=== PATIENT | male | born 1965 | race Caucasian/White ===

== ENCOUNTER 2018-05-01 12:15 | Observation (INO) | payer OTHER ==
--- NOTE | 2018-04-30 18:01 | GHP ---
DATE OF ADMISSION: 05/01/2018 HISTORY: The patient is a 52-year-old male who presents with years of right knee pain, predominantly laterally. He has had a right knee arthroscopy and partial lateral meniscectomy back around 2012, w ith myself in 2016 for further chondroplasty and meniscal work. He has a remote history of ACL injur y that was treated non operatively and he denies instability. The meniscectomy work has not provided relief and he has had numerous additional treatments, my arthroscopy included PRP injection around t he meniscus, he has had steroid injections as well as hyaluronic acid injections. He has maintained his fitness and his range of motion. He has modified his activities. He is at a point now where any kind of activity bothers his knee, even just activities of daily living. His most recent studies in clude x-rays and MRI, he has tricompartment arthritis, most predominantly lateral and patellofemoral compartment, the lateral compartments had partial meniscectomy work. He has most significant chondro malacia in the lateral compartment, but also significant chondromalacia of the patellofemoral compart ment. He has had a thorough discussion with me about partial versus total knee replacement, given th e multi-compartment involvement and his knowledge and now of the different options, he would like to proceed with a right total knee arthroplasty. PAST MEDICAL HISTORY: No current medical problems. PAST SURGICAL HISTORY: Includes herniorrhaphy. He has had right hand and wrist procedures. He has had multiple procedures on his right knee. He has had a right foot sesamoidectomy. MEDICATIONS: He is taking no prescription medications. He is using supplements. ALLERGIES: He has no known drug allergies. SOCIAL HISTORY: He is a nonsmoker. REVIEW OF SYSTEMS: Negative for cardiopulmonary disease. PHYSICAL EXAM: The right knee has an effusion. He has lateral joint line tenderness, a positive lat eral Judi's test. His ACL does have some increased translation and a soft endpoint. His skin is intact. Neurovascular exam is intact. He has maintained his range of motion. IMPRESSION: Right knee osteoarthritis, predominantly lateral and patellofemoral compartments. PLAN: Right total knee arthroplasty. Benefits and risks of surgery have been reviewed including the risk of infection, damage to blood vessel or nerves, failure or loosening of components, blood clot in the leg or lungs bleeding and need for transfusion. I have reviewed the rigorous nature of the re habilitation. He has signed consent form and he wishes to proceed. /[id number]/MODL
--- NOTE | 2018-05-01 11:36 | PDANEPAE ---
ANE Past Medical History - Cardiovascular History Hx Hypertension: No Hx Arrhythmias: No Hx Chest Pain: No Hx Coronary Artery / Peripheral Vascular Disease: No Hx CHF / Valvular Disease: No Hx Palpitations: No - Pulmonary History Hx COPD: No Hx Asthma/Reactive Airway Disease: No Hx Recent Upper Respiratory Infection: No Hx Oxygen in Use at Home: No Hx Sleep Apnea: No Sleep Apnea Screening Result - Last Documented: Positive - Neurologic History Hx Cerebrovascular Accident: No Hx Seizures: No Hx Dementia: No - Endocrine History Hx Diabetes: No - Renal History Hx Renal Disorders: No - Liver History Hx Hepatic Disorders: No - Neurological & Psychiatric Hx Hx Neurological and Psychiatric Disorders: No - Cancer History Hx Cancer: No - Congenital Disorder History Hx Congenital Disorders: No - GI History Hx Gastrointestinal Disorders: No - Other Health History Other Health History: none - Chronic Pain History Chronic Pain: Yes (right wrist) - Surgical History Prior Surgeries: march 14 wrist surgery. R knee scopes 2yrs ago x2 ANE Review of Systems Review of Systems: - Exercise capacity Exercise capacity: >=4 METS METS (RN): 6 METS ANE Patient History - Allergies Allergies/Adverse Reactions: No Known Allergies Allergy (Unverified 04/21/18 15:33) - Home Medications Home Medications: NK [No Known Home Meds] 04/21/18 [Last Taken Unknown] - NPO status NPO Status: no food or drink >8 hours - Anes Hx Anes Hx: no prior problems - Smoking Hx Smoking Status: Never smoked - Family Anes Hx Family Anes Hx: none Family Hx Anesthesia Complications: none ANE Labs/Vital Signs - Vital Signs Height: 175.26 cm Weight: 78.471 kg ANE Physical Exam - Airway Neck exam: FROM Mallampati Score: Class 2 Mouth exam: normal dental/mouth exam - Pulmonary Pulmonary: clear to auscultation - Cardiovascular Cardiovascular: regular rate and rhythym - ASA Status ASA Status: I ANE Anesthesia Plan Anesthesia Plan: spinal Regional Anesthesia: single shot NB
[~2018-05-01 12:15] MED LIST: POVIDONE-IODINE 20 ML in SODIUM CL IRRIG SOLUTION 500 ML IRR ONE; ROPIVACAINE 0.2% 80 MG, EPINEPHrine 0.2 MG, KETOROLAC TROMETHAMINE 30 MG in SYRINGE 0 ML IU ONE; TRANEXAMIC ACID 1,000 MG in NS 100 ML IV ONE; ceFAZolin 1 GM/5 ML SYR ONE
[2018-05-01] MEDS ORDERED: ONDANSETRON 4 MG/2 ML VIAL IVP ONE (12:30)
[2018-05-01] MEDS ORDERED: ACETAMINOPHEN 325 MG TAB PO ONE (12:30)
[2018-05-01] MEDS ORDERED: ceFAZolin 2 GM/DEXTROSE 100 ML IV ONE (12:30)
[2018-05-01] MEDS ORDERED: GABAPENTIN 300 MG CAP PO ONE (12:30)
[2018-05-01] MEDS ORDERED: DEXAMETHASONE 4 MG/ML VIAL IVP ONE (12:30)
[2018-05-01] MEDS ORDERED: FAMOTIDINE 20 MG TAB PO ONE (12:30)
[2018-05-01] MEDS ORDERED: LR 1,000 ML IV ONE (12:31)
[2018-05-01] MEDS ORDERED: LIDOCAINE 1% 2 ML INJ ID PRN (12:31)
--- NOTE | 2018-05-01 12:51 | PDHPUP ---
History & Physical Update H&P update statement: This history and physical update is based on an assessment of the patient which was completed after admission or registration (within 24 hours), but prior to the surgery/procedure. no change H&P update: no change in patient's condition since H&P completed (no change)
[2018-05-01] MEDS ORDERED: MIDAZOLAM 2 MG/2 ML VIAL IVP ONE (12:53)
[2018-05-01] MEDS ORDERED: BUPIVACAINE/DEXTROSE 7.5MG/ML 2 ML SPINAL AMP SP ONE (13:05)
[2018-05-01] MEDS ORDERED: PROPOFOL/EMULSION 500 MG/50 ML BOTTLE IV ONE (13:06)
[2018-05-01 13:11] LABS: PLATELET COUNT 292 10^3/uL (150-400)
[2018-05-01] MEDS ORDERED: fentaNYL 100 MCG/2 ML INJ ONE (13:57)
[2018-05-01] MEDS ORDERED: PROPOFOL 200 MG/20 ML VIAL ONE ×2 (14:38→14:50)
[2018-05-01] MEDS ORDERED: BUPIVACAINE/EPI 0.5% 30 ML SDV ONE (14:56)
[2018-05-01] MEDS ORDERED: oxyCODONE IR 5 MG TAB PO PRN (15:36)
[2018-05-01] MEDS ORDERED: CYCLOBENZAPRINE 10 MG TAB PO PRN (15:36)
[2018-05-01] MEDS ORDERED: POLYETHYLENE GLYCOL 3350 17 GM PKT PO PRN (15:36)
[2018-05-01] MEDS ORDERED: PROMETHAZINE HCL 25 MG SUPPR PR PRN (15:36)
[2018-05-01] MEDS ORDERED: BISACODYL 10 MG SUPP PR PRN (15:36)
[2018-05-01] MEDS ORDERED: diphenhydrAMINE 25 MG CAP PO PRN (15:36)
[2018-05-01] MEDS ORDERED: DIPHENOXYLATE/ATROPINE LOMOTIL 1 TAB PO PRN (15:36)
[2018-05-01] MEDS ORDERED: KETOROLAC 15 MG/1 ML SDV IVP ONE (15:36)
[2018-05-01] MEDS ORDERED: TEMAZEPAM 15 MG CAP PO PRN (15:36)
[2018-05-01] MEDS ORDERED: PROMETHAZINE HCL 25 MG/ML INJ IVP PRN (15:36)
[2018-05-01] MEDS ORDERED: MAGNESIUM HYDROXIDE 30 ML UDCUP PO PRN (15:36)
[2018-05-01] MEDS ORDERED: LACTULOSE 20 GM/30 ML UDCUP PO PRN (15:36)
[2018-05-01] MEDS ORDERED: METOCLOPRAMIDE 10 MG/2 ML VIAL IVP PRN (15:36)
[2018-05-01] MEDS ORDERED: ALBUTEROL 3 ML DEYVIAL IH PRN (15:37)
[2018-05-01] MEDS ORDERED: ACETAMINOPHEN 500 MG TAB PO PRN (15:37)
[2018-05-01] MEDS ORDERED: fentaNYL 100 MCG/2 ML INJ IVP PRN (15:37)
[2018-05-01] MEDS ORDERED: NALOXONE HCL 0.4 MG/ML INJ IVP PRN (15:37)
[2018-05-01] MEDS ORDERED: ONDANSETRON 4 MG/2 ML VIAL IVP PRN (15:37)
--- NOTE | 2018-05-01 15:37 | POSTANESTH ---
Post Anesthetic Evaluation Cardiovascular Status: Similar to Pre-Op Cond Respiratory Status: Similar to Pre-op Cond. Level of Consciousness/Mental Status: Alert and Oriented Pain Control: Adequate, Prn Tx Ordered Nausea/Vomiting Control: Adequate, Prn Tx Ordered Complications Possibly Related to Anesthesia: None Noted
[2018-05-01] MEDS ORDERED: LR 1,000 ML IV SCH (16:00)
[2018-05-01] MEDS: ACETAMINOPHEN 325 MG TAB PO SCH (17:59)
--- NOTE | 2018-05-01 18:07 | GOP ---
DATE OF OPERATION: 05/01/2018 SURGEON: Keith Maciel MD PALLET REPAIRER: ALEXANDRA SnowA, LSA ANESTHESIA: Dr. Li Okeefe PREOPERATIVE DIAGNOSIS: Right knee osteoarthritis. POSTOPERATIVE DIAGNOSIS: Right knee osteoarthritis. PROCEDURE PERFORMED: Right total knee arthroplasty. FINDINGS: SPECIMENS: Include excised bone. ESTIMATED BLOOD LOSS: About 40 cc. INDICATIONS: The patient is a 52-year-old male who has had chronic problems with his right knee. He has osteoarthritis involving the lateral and patellofemoral compartments. He has had multiple previ ous scopes, multiple injections, physical therapy. He has used medications and continues to have a d ebilitating discomfort affecting his gait and quality of life, even activities of daily living. Afte r a thorough review of his treatment options and the consideration that he has multiple compartments involved, a total knee replacement is planned. DESCRIPTION OF PROCEDURE: The patient was taken to the operating room, placed in the seated position , and Dr. Okeefe provided a spinal block. Thereafter, he had IV sedation. He received preoperative ant ibiotics, as well as tranexamic acid. A tourniquet was fit high on the right thigh. He has minimal flexion contracture. The right leg was prepped and draped free with chlorhexidine in the usual fashi on for total knee replacement. The right leg was elevated, exsanguinated, and the tourniquet inflate d to 275 mmHg. I made a longitudinal incision in the midline, dissected through subcutaneous tissue, used a medial p arapatellar arthrotomy. I inverted the patella. It had significant arthritis. I measured its thick ness and removed 9 mm of cartilage and bone and sized the patella to a size 35. I drilled the approp riate PEG holes for this component and the component in his little traverse patella reconstituted his patellar thickness. I then flexed the knee, this knee had considerable arthritis. There was degenerative lipping of the lateral femoral condyle and significant cartilage loss in the lateral compartment. I drilled a towing pilot hole in the distal femur. I introduced an intramedullary guide bala and set up above 5 degree valgus cut, plus 2 extra to obtain adequate cut of the distal femur, and sized of the distal femur to betwe en a 6 and a 7, I downsized to a 6, moved it slightly anterior to avoid notching, and finished the cu ts, including the notch cuts for this bi-cruciate stabilized knee. I then addressed the tibia. I used an extramedullary device on the tibia. I adjusted rotation, alig nment, and posterior slope. I adjusted for cut depth. I made my cut, trying to minimize the bone re section in this relatively young person. I sized the tibial surface at a size 5. By placing trial r eductions, I fine-tune the rotation and finished the tibial prep with the drill hole and cruciate pun ch. All the components were removed. Jet lavage antibiotics were used. The quality of bone was excellen t all 3 compartments. All 3 components were cemented, the femur size 6, the tibia size 5, the [place] la 35, and once the cement hardened, I did trial reductions. I found that a 9 mm crosslink poly tray would provide excellent extension, nice rollback in flexion, appropriate rotation. I chose the 9 mm articular tray. The joint was irrigated with antibiotic solution, as well as Betadine rinse. The t ourniquet was let down after about an hour and 15 minutes. He received a second tranexamic acid dose . I closed the arthrotomy with interrupted utqlpp-eb-vwaxo sutures of 0 Mersilene. Subcutaneous tis will was closed with 2-0 Monocryl, and the skin was closed with otto. The wound was dressed with B etadine-soaked Adaptic, 4x4s, sterile Webril, and a long-leg RUBY stocking. COMPLICATIONS: There were no complications. DRAINS: No drain. COUNTS: All counts were correct and the patient was taken in stable condition to recovery. My surgical services coordinator was a medical necessity for this total knee replacement. SUMMARY OF COMPONENTS: This is a [employer] bi-cruciate stabilized knee with an Oxiniu m femur. All components cemented. Femur size 6, tibia size 5, patella 35 mm, and the articular tray crosslink polyethylene 9 mm. /[id number]/MODL
[2018-05-01] MEDS: SENNOSIDES/DOCUSATE SODIUM TAB PO SCH (20:32)
[2018-05-01] MEDS: ceFAZolin 2 GM/DEXTROSE 100 ML IV SCH (20:32)
[2018-05-01] MEDS: FAMOTIDINE 20 MG TAB PO SCH (20:32)
[2018-05-01] MEDS: ASPIRIN 81 MG CHEWABLE TAB PO SCH (20:32)
[2018-05-02] MEDS: ACETAMINOPHEN 325 MG TAB PO SCH ×2 (00:05→05:30)
[2018-05-02] MEDS: ceFAZolin 2 GM/DEXTROSE 100 ML IV SCH (05:30)
--- NOTE | 2018-05-02 08:10 | SOAPPROG ---
SOAP Progress Note Assessment/Plan: Assessment: 05/02/18 POD#1 R TKA, pain controlled, xray fine Plan: 05/02/18 08:08 home after PT, asa, celebrex, oxy,tyl, outpt PT Objective: Vital Signs Temp Pulse Resp BP Pulse Ox 36.8 C 72 16 109/74 98 05/02/18 05:47 05/02/18 05:47 05/02/18 05:47 05/02/18 05:47 05/02/18 05:47 Laboratory Results 05/02/18 05:01 05/01/18 05/02/18 05/03/18 05:59 05:59 05:59 Intake Total 2250 Output Total 2385 Balance -135 ICD10 Worksheet Patient Problems: Problems Problem Status Onset Osteoarthritis of right knee Acute - ICD10 Problem Qualifiers (1) Osteoarthritis of right knee
[2018-05-02 08:35] VITALS: BP 111/76
[2018-05-02] MEDS: FAMOTIDINE 20 MG TAB PO SCH (08:53)
[2018-05-02] MEDS: ASPIRIN 81 MG CHEWABLE TAB PO SCH (08:53)
[2018-05-02] MEDS: SENNOSIDES/DOCUSATE SODIUM TAB PO SCH (08:54)
--- NOTE | 2018-05-02 11:05 | ASMTLACE ---
LACE Length of stay for Answers: 2 days current admission Acuity / Level of Answers: No Care: Did the patient have an inpatient admission? Comorbidities - select Answers: Opioid dependence all that apply / Chronic pain # of Emergency department Answers: 0 visits in the last 6 months Score: 6 Date Signed: 05/02/2018 11:04 AM Electronically Signed By:THIAGO Avalos
--- NOTE | 2018-05-02 11:09 | ASMTDCNOTE ---
Case Management Discharge Discharge Order Complete? Answers: Yes Patient to Obtain Answers: via Family Medications Transportation Arranged Answers: Family/Friends Discharge Comments Notes: Pt being discharged independent. No CM needs identified. Family to provide transportation. Date Signed: 05/02/2018 11:09 AM Electronically Signed By:THIAGO Avalos
== END 2018-05-02 11:26 | disposition home or self-care (01) ==
LOC: F3E 12:15 → EDSTATUS 13:30 → F3N 16:39
PROVIDERS: ADMIT Orthopaedic Surgery; ATTEND Orthopaedic Surgery
PROC: 0SRC0J9 Replacement of Right Knee Joint with Synthetic Substitute, Cemented, Open Approach (ICD-10-PCS; principal; 2018-05-01 13:17)
DX: M17.11 Unilateral primary osteoarthritis, right knee (principal)
CPT/HCPCS: 27447; 73560; 97116; 97161; 97165; 97535; G0378; C1713; J0171; J0690; J1100; J1885; J2250; J2405; J2704; J2795; J3010